=== PATIENT | male | born 1955 | race Caucasian/White ===

== ENCOUNTER 2016-11-20 16:03 | Inpatient (IN) | payer MEDICARE ==
[~2016-11-20] VITALS: Ht 180.3 cm; Wt 119.0 kg
--- NOTE | ~2016-11-20 | CON ---
PATIENT'S NAME: KALPESH SIMON [facility] AGE: 61 Y [address] ROOM: G6[address] [place], [place] [address] LOCATION: GPCU ADMIT DATE: 11/20/2016 Consultation DISCHARGE DATE: 11/22/2016 FAMILY PHYSICIAN: Albina Mancilla DO ATTENDING PHYSICIAN: Angelita Kirk DATE OF CONSULTATION: 11/21/2016 REFERRING PHYSICIAN: Claudy Jules MD INDICATION: Chest pain and shortness of breath. HISTORY OF PRESENT ILLNESS: This is a 60-year-old male, well known to Dr. Donovan with a history of asthma, SKIP, GERD, and other comorbidities who was admitted for chest pain and is status post a left heart catheterization, which was negative. He has a history of CAD with a previous left heart catheterization in October and is status post a drug-eluting stent to the left circ at that time. He reports that his chest pain started fairly sudden on Sunday night around 2:00 a.m. He woke up feeling a heaviness over his left chest up to his left ear. The pain was fairly constant and nothing seemed to make it worse or better. He does recall trying an extra dose of Pepcid, which he takes daily for his severe GERD. He thinks that might have helped some because he did wait for another 24 hours before presenting to the ER. He denies any fevers, chills, nausea, or vomiting. He did have some nausea and vomiting a few times on Sunday before the chest pain started. He also notes increased shortness of breath that occurred simultaneously with the chest pain. He has noted some occasional wheezing as well. He otherwise denies hemoptysis, edema, cough, or sputum production. At the time of this evaluation, he reported that his symptoms spontaneously resolved. He essentially has no shortness of breath or chest pain any more. He was last seen in the clinic and at the end of August in 2015, it was treated for hypersensitivity pneumonitis. He was placed on steroids at that time. The patient reports that his chest pain symptoms that he experienced on Sunday night were also the same symptoms he has experienced as his anginal pain as well as with his recent pneumonitis pain. PAST MEDICAL HISTORY: Includes asthma, SKIP, CAD, hypertension, depression, degenerative joint disease, gout, diabetes, and hypersensitivity pneumonitis. PAST SURGICAL HISTORY: Includes drug-eluting stent to the left circ in October 2016, appendectomy, and colonoscopy eight years ago that he reports as negative. PATIENT'S NAME: KALPESH SIMON [facility] AGE: 61 Y [address] ROOM: [address] [place], [place] [address] LOCATION: GPCU ADMIT DATE: 11/20/2016 Consultation DISCHARGE DATE: 11/22/2016 FAMILY PHYSICIAN: Albina Mancilla DO ATTENDING PHYSICIAN: Angelita Kirk ALLERGIES: SEE NOV. MEDICATIONS: See NOV. SOCIAL HISTORY: Negative for smoking or alcohol use. FAMILY HISTORY: Significant for heart disease and diabetes. No lung history. REVIEW OF SYSTEMS: 12-point review of systems is negative except what is noted in the HPI. PHYSICAL EXAMINATION: VITAL SIGNS: Blood pressure 126/66, pulse 83, respirations 20, temp 97.5, sats were 95% on room air. GENERAL: This is a 60-year-old male, well developed, well nourished, overweight, who is alert and oriented x3 and appears in no acute distress at the time of exam. HEENT. Head: Normocephalic and atraumatic. Eyes, clear. NECK: Supple. No adenopathy. No carotid bruits or JVD. LUNGS: Clear throughout bilaterally. No wheezes or rales. HEART: Regular rate and rhythm without murmur, gallop, or rub. ABDOMEN: Soft, nontender, nondistended. Bowel sounds x4. EXTREMITIES: No cyanosis, clubbing, or edema. DIAGNOSTIC DATA: Sodium 143, potassium 3.7, BUN 19, creatinine 1.2. Troponins 0.122-0.107- 0.08. ProBNP less than 30. WBC 9.4, hemoglobin 12.8, hematocrit 38.6, platelets 173. Chest x-ray report was negative. ASSESSMENT: 1. Chest pain, seems musculoskeletal in nature. Doubt pleurisy or any other pulmonary origin. 2. Dyspnea, intermittent, possible hyperinflation worse with talking, encourage deep breathing exercises as well as albuterol as needed. 3. Gastroesophageal reflux disease, still symptomatic, change in medications will be per GI. 4. Obstructive sleep apnea with nocturnal hypoxia. Sleep study results still pending. PLAN: Overall, significant amount of reassurance was provided to the patient as this PATIENT'S NAME: KALPESH SIMON [facility] AGE: 61 Y [address] ROOM: [place] [address] [facility] ADMIT DATE: 11/20/2016 Consultation DISCHARGE DATE: 11/22/2016 FAMILY PHYSICIAN: Albina Mancilla DO ATTENDING PHYSICIAN: Angelita Kirk was most likely musculoskeletal or possibly even viral in nature. He is still somewhat symptomatic from his GERD and medications will be adjusted per GI. Overall, from a pulmonary standpoint, he is stable and can be discharged to home. We will call the patient for an appointment after his sleep study results become available. Thank you for the consult and opportunity to participate in the patient's care. TYRONE KELLEY APRN FOR MD ALEJO RIVERA/marcelal /[id number] d: 11/30/162250 t: 12/11/16 1311, CONSULTATION REPORT
--- NOTE | ~2016-11-20 | ECHO ---
Transthoracic Echocardiography Report (TTE) Demographics Patient Name KALPESH SIMON Date of Study 11/20/2016 Patient Number [id number] Visit Number [id number] Date of 1955 Room Number G6337 Accession Number [id number] Gender Male Age 60 year(s) Referring Olegario Hannah MD Retail Associate Manager Bilingual David Sanchez T Physician Physician Interpreting [employer] Marketing Manager Physician MD Supervising Ordering Physician Olegario Hannah MD, MD/P Nurse Stress Inside Sales Professional Conclusions Summary Normal LV/RV size and systolic function. The estimated left ventricular ejection fraction is > 70%. MV is grossly normal. No MR. Thick epicardial fat pad. Recommendation The patient will be given the results of this study by the physician who ordered the exam. Cardiology pathology secretary requested me to read this echocardiogram today. Procedure Type of Study TTE procedure:Echo with Contrast. Procedure Date Date: 11/20/2016 Start: 04:46 PM Study Location: ER Indications:Chest pain. Patient Status: STAT HR: 85 bpm BP: 163/90 mmHg Allergies - Latex. - Other:(Insect venom). - Latex. - Other:(insect venom, strawberry, peach, perfume, chocolate). - Latex. - Latex. M-Mode/2D Measurements LV Diastolic Dimension: 3.3 cm LV Systolic Dimension: 1.34 cm LV Septum Diastolic: 1.74 cm LV PW Diastolic: 1.85 cm AO Root Dimension: 2.4 cm LA Dimension: 4.2 cm RV Diastolic Dimension: 3.35 cm LA volume: 52 ml LVOT: 2 cm Findings Left Ventricle Moderate to severe concentric left ventricular hypertrophy. Left Atrium LA is normal in size. Right Atrium RA is grossly normal in size. Aortic Valve AV is not well seen. No AI. Tricuspid Valve TV is not well seen. Pulmonic Valve PV is not well seen. Miscellaneous Poor subcostal images, IVC is not well visualized. Contractility Score LV regional wall motion:(0-Non visualized 1-Normal 2-Hypokinesis 3-Akinesis 4-Dyskinesis 5-Aneurysm) Signature dtt: RAMSEY VIDAL dtd: 11/20/16 1646 Physician Self Edit
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
--- NOTE | ~2016-11-20 | DS ---
PATIENT'S NAME: [facility] AGE: 61 Y [address] ROOM: [place] [address] LOCATION: GPCU ADMIT DATE: 11/20/2016 Discharge Summary DISCHARGE DATE: 11/22/2016 FAMILY PHYSICIAN: Albina Mancilla DO ATTENDING PHYSICIAN: Angelita Kirk DISCHARGE DIAGNOSES: 1. Ofe-ZN-tuzcgzu elevation myocardial infarction secondary to being off anti-platelet agents. 2. Coronary artery disease with a recent percutaneous coronary intervention of the left circumflex and staged percutaneous coronary intervention of the left anterior descending. 3. Normal ejection fraction. 4. Left ventricular hypertrophy. 5. Duodenal and esophageal ulcers. 6. Chronic obstructive pulmonary disease/hypersensitivity pneumonia/asthma. 7. Moderate obesity. 8. Type 2 diabetes. 9. Hypertension. 10. Adverse effects to metoprolol and clonidine. 11. Diffuse itching, the etiology of which is unclear. DISCHARGE MEDICATIONS: 1. Aspirin 325 mg a day. 2. Allopurinol 300 mg a day. 3. Atorvastatin 80 mg a day. 4. Bisoprolol 5 mg daily. 5. Cymbalta 20 mg a day. 6. Fluticasone nasal spray 2 sprays every day. 7. Insulin 100 units/mL 36 units subcutaneous before meals and at bedtime. 8. NovoLog sliding scale. 9. Minoxidil 5 mg a day. 10. Benicar 40 mg a day. 11. Protonix 40 mg a day. 12. Prasugrel 10 mg a day. 13. Prednisone 20 mg a day. 14. Tresiba 150 units every evening. 15. Acetaminophen as needed. 16. Nitroglycerin 0.4 mg sublingual p.r.n. 17. Xanax 0.5 mg t.i.d. p.r.n. 18. CPAP. 19. Aldactazide 25/25 once a day. HOSPITAL COURSE: Course in Hospital: The patient presented with chest pain to the emergency room, where he has had it for about 30 minutes. It appears [facility]GE: 61 Y [address] ROOM: [place] [address] LOCATION: GPCU ADMIT DATE: 11/20/2016 Discharge Summary DISCHARGE DATE: 11/22/2016 FAMILY PHYSICIAN: Albina Mancilla DO ATTENDING PHYSICIAN: Angelita Kirk as if the patient somehow got confused about his medications and has not been taking his Brilinta. He was taken directly to the catheterization lab and his stents were widely patent. Some of his shortness of breath is probably related to his obesity and also his pulmonary problems. So Dr. Donovan was consulted. Some of the chest pains were probably not closely related to his heart. I had asked Dr. Jules to see him, who found the ulcers in his esophagus and stomach. It was also felt that his metoprolol and clonidine are also possibly affecting him overall. So appropriate changes in medications were made and patient was discharged to home with the above medications to be followed up by myself, Dr. Donovan, as well as Dr. Jules. CONDITION ON DISCHARGE: The patient was discharged to home in an improved condition. MD MARIA GUADALUPE OLIVAREZ/tremayne /[id number] d: 12/05/162052 t: 12/12/161899, DISCHARGE SUMMARY
--- NOTE | ~2016-11-20 | CATH ---
Cardiac Diagnostic Report Demographics Patient Name AURORA Olson Gender Male Date of 1955 Age 60 year(s) Patient Number [id number] Date of Study 11/20/2016 Visit Number [id number] Room Number G6[address] [place] [id number] Ht 180.34 cm Wt 116.11 kg Referring Reagan Primary Physician Physician Angelita EMMANUEL Performing Reagan Secondary Physician Physician Angelita EMMANUEL Diagnostic Reagan Assisting Physician Physician Angelita EMMANUEL Interventional Physician Patient Representative Physician Findings and Conclusions Diagnostic Findings and Conclusion calcifications involving proximal coronaries stents seen/patent LVEDP 7 mild disease no identifiable lesions to account for non-stemi Diagnostic Recommendations medical therapy Procedure Description The patient was brought to the diagnostic cardiac catheterization-EP laboratory in the fasting, non-sedated state. Informed consent was obtained in the written and verbal form after the risks and benefits were explained. The patient had no further questions and agreed to proceed. The planned puncture-incision site(s) were shaved and prepped with ChloraPrep and draped in the usual sterile manner. Conscious sedation, supplemental oxygen, and pain control medications were delivered by a registered nurse under physician guidance. Surface ECG rhythm, blood pressure measurement, and pulse oximetry were monitored throughout the procedure. Arterial access. The access site was infiltrated with lidocaine. The vessel was entered with the Seldinger technique. A sheath was advanced into the vessel and used for catheter placement. Selective left coronary angiography. A catheter was advanced into the left coronary vessel ostium under Fluoroscopic guidance. Contrast was injected by hand. Images were obtained in multiple projections. Selective right coronary angiography. A catheter was advanced into the right coronary vessel ostium under fluoroscopic guidance. Contrast was injected by hand. Images were obtained in multiple projections. Left heart catheterization. A catheter was advanced across the aortic valve to the left ventricle under fluoroscopic guidance. Resting hemodynamics were obtained. Arterial artery hemostasis was achieved. The patient was transferred to a regular nursing floor via cart accompanied by a nurse. The patient left the laboratory in stable condition. Diagnostic Cath Status: Emergency Procedure Procedure Type Diagnostic procedure:Angiography:, Coronary Angios w/[facility] Indications: Angina and Shortness of breath. The procedure was explained in detail to the patient. Risks, complications and alternative treatments were reviewed. Written consent was obtained. Medications Reviewed with Patient prior to Procedure. Angiographic Findings Dominance: Right Cardiac Arteries and Lesion Findings LMCA: Abnormal.ostial 30% Lesion on LMCA: Ostial.30% stenosis . LAD: Abnormal.mild diffuse disease, stent patent, jailed diagonal 25-30%There is a previous stent on Mid LAD Mid subsection. Lesion on 1st Diag: Ostial.30% stenosis . LCx: Normal (0% Stenosis).luminal irregularitiesThere is a previous stent on Dist CX Proximal subsection. RCA: Normal (0% Stenosis).mild luminal irrugularitiesThere is a previous stent on Mid RCA Mid subsection. Ramus: Normal (0% Stenosis).mild luminal irregularities Coronary Tree Procedure Data Procedure Date Date: 11/20/2016Start: 05:45 PMEnd: 06:14 PM Entry Locations - Retrograde Percutaneous access was performed through the Right Femoral artery (Primary location). A 7 Fr sheath was inserted. Hemostasis was successfully obtained using Perclose ProGlide (Zeomatrix). Closure Comments: deployed by gregory. Procedure Medications Order and Administration + + + + + !Time !Medication !Dosage !Route ! + + + + + !11/20/2016 05:24 PM !Oxygen !2 l/min !NC ! + + + + + !11/20/2016 05:29 PM !0.9% NaCl !100 ml/hr !I.V. drip ! + + + + + !11/20/2016 05:43 PM !Fentanyl !50 mcg !I.V. ! + + + + + !11/20/2016 05:50 PM !Fentanyl !50 mcg !I.V. ! + + + + + !11/20/2016 06:10 PM !Oxygen ! !NC ! + + + + + Devices Used - A6 Fr. BS JR 4 Diag. Catheterwas used for:Right coronary angiography. - A6 Fr. BS JL 4 Diag. Catheterwas used for:Left coronary angiography. Contrast Material - Isovue 147950 ml Fluoroscopy Time: Diagnostic: 3:54 minutes. Total: 3:54 minutes. Fluoroscopy Dose: Diagnostic: 1442 mGy. Total: 1442 mGy. Estimated Blood Loss: 20 ml. Medical History Allergies - Latex. - Other:(Insect venom). - Latex. - Other:(insect venom, strawberry, peach, perfume, chocolate). - Latex. - Latex. Risk Factors The patient risk factors include:prior PCI on 10/15/2016;obesity, cerebrovascular disease, physical activity, treated hypercholesterolemia, treated hypertension, orally-treated diabetes mellitus, chronic lung disease, last creatinine: 1.4 mg/dl, creatinine clearance: 89.85 ml/min, dyslipidemia and prior VT . Admission Data Admission Date: 11/20/2016 Admission Time: 05:19 PM Admit Source: [facility] facility Insurance Payors: Medicare. Admission Medications + +------+------+ + + + + !Medication !Dosage!Times !Last !Last !Administered !Comments ! ! ! !Per !Delivery !Delivery ! ! ! ! ! !Day !Date !Time ! ! ! + +------+------+ + + + + !Aspirin ! ! ! ! ! ! ! !(any) ! ! ! ! ! ! ! + +------+------+ + + + + !Beta Marta! ! ! ! ! ! ! !(any) ! ! ! ! ! ! ! + +------+------+ + + + + !ARB (any) ! ! ! ! ! ! ! + +------+------+ + + + + !Nitrates (iv! ! ! ! ! ! ! !or buccal) ! ! ! ! ! ! ! + +------+------+ + + + + !Statin (any)! ! ! ! ! ! ! + +------+------+ + + + + Clinical Evaluation Leading to Procedure - The patient's CAD presentation was assessed as: Non-STEMI. - The patient's anginal syndrome during the past two weeks was assessed as: Class IV according to the [place] Cardiovascular Society Classification System (CCS). Anti-anginal medications were prescribed during the past two weeks. The medications are: Beta Blockers, Long Acting Nitrates and Other. VA Ventriculography Findings LVEDP 7 mmhg Hemodynamics Condition: Rest O2 Consumption: Estimated: 279.90Heart Rate: 77 bpm Pressures (mmHg) +-----+ + !Site !Pressure ! +-----+ + !LV !119/5 ,7 ! +-----+ + !LV !124/4 ,7 ! +-----+ + !AO !110/68 (88) ! +-----+ + !LV !121/3 ,7 ! +-----+ + !AO !111/69 (89) ! +-----+ + !AO !93/70 (58) ! +-----+ + Valve Gradients and Areas + +---------+---------+---------+ +---------+ + !Valve !Peak !Mean !Area !Index !Flow !Source ! + +---------+---------+---------+ +---------+ + !Aortic !10 !9 ! ! ! ! ! + +---------+---------+---------+ +---------+ + !Aortic !10 !9 ! ! ! ! ! + +---------+---------+---------+ +---------+ + Shunts Oxygen Values O2 Capacity 174.08 O2 Consumption 279.9 Discharge Data Discharge Date: 11/22/2016 Hospital Status: Inpatient Signatures dtt: Angelita Kirk dtpricila: 11/20/16 1745 Physician Self Edit
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
[~2016-11-20 16:03] MED LIST: ASPIRIN LO-DOSE81 MG PO; ASPIRIN325 MG PO; BENADRYL25 MG PO; BRILINTA90 MG PO; CATAPRES0.1 MG PO; COQ-10100 MG PO; CPAP INH; CRESTOR10 MG PO; CYMBALTA20 M1 PO; DELTASONE20 MG PO; DRISDOL 5050000 UNIT PO; EFFIENT10 MG PO; FLONASE 50 MCG/16 GM NOSE; HUMALOG KW200 UNIT/1 SUB-Q; LANTUS (IN100 UNIT/M SUB-Q; LIPITOR10 MG PO; LIPITOR40 MG PO; LOPRESSOR50 MG PO; MUCOMYST 20200 MG/M1 PO; NEURONTIN300 MG PO; NILSTAT60 ML PO; NITROSTAT0.4 MG SL; NORCO 5-325 MG1 TAB PO; NORVASC5 MG PO; PRILOSEC20 MG PO; RANEXA ER500 MG PO; TRESIBA FL200 UNIT/1 SUB-Q; TRIBENZOR 40-51 EAC1 PO; TYLENOL325 MG PO; VITAMIN D-32000 UNI1 PO; XANAX0.5 MG PO; XARELTO15 MG PO; ZYLOPRIM300 MG PO
[2016-11-20 16:37] LABS: BASOPHIL # 0.1 K/uL (0.0-0.2); BASOPHIL % 0.6 %; EOSINOPHIL # 0.3 K/uL (0.0-0.5); EOSINOPHIL % 2.9 %; HEMATOCRIT 38.6 % (37.0-53.0); HEMOGLOBIN 12.8 g/dL (11.0-16.0); IMMATURE GRANULOCYTE % 0.2 %; LYMPHOCYTE # 2.5 K/uL (0.8-4.0); LYMPHOCYTE % 26.4 %; MCH 28.7 pg (27.0-34.0); MCHC 33.2 gm/dL (32.0-36.5); MCV 86.5 fl (83.0-98.0); MONOCYTE # 1.1 K/uL (0.0-1.0); MONOCYTE % 11.4 %; MPV 9.6 fl (9.4-12.4); NEUTROPHIL # (ANC) 5.5 K/uL (1.4-9.0); NEUTROPHIL % 58.5 %; NRBC % 0 /100WBC (0-0.00); PLATELET COUNT 173 K/uL (150-450); RBC 4.46 M/uL (3.50-5.50); RDW-CV 14.3 % (11.9-14.6); WBC 9.4 K/uL (4.0-11.0)
[2016-11-20 16:46] LABS: PROTIME 10.7 SECONDS (9.6-11.1); PTT 25 SECONDS (25-32)
[2016-11-20 17:01] LABS: ALBUMIN 3.7 gm/dL (3.5-5.0); ALK PHOS 91 IU/L (33-138); ALT 75 IU/L (12-78); ANION GAP 13.7 (10.0-19.0); AST 48 IU/L (10-40); BLOOD UREA NITROGEN 19 mg/dL (6-24); CALCIUM 8.6 mg/dL (8.5-10.5); CHLORIDE 108 mMol/L (96-110); CO2 24 mMol/L (22-32); CPK 252 IU/L (35-332); CREATININE 1.4 mg/dL (0.6-1.3); ESTIMATED GFR (MDRD EQUATION) 51; POTASSIUM 3.7 mMol/L (3.7-5.1); SODIUM 142 mMol/L (135-145); TOTAL PROTEIN 7.1 g/dL (6.0-8.4)
[2016-11-20 17:05] LABS: TOTAL BILIRUBIN 0.4 mg/dL (0.0-1.5)
--- NOTE | 2016-11-20 20:11 | NUR ---
Patient is 60 yo male admitted this evening from [facility] via [facility], was seen in ER and went to clinical lab specialist. patient is alert and oriented. has a long history of heart problems and is diabetic. hx of stroke as well. IV infusing in left hand, saline lock noted in left antecubital space both without erythema or edema noted at sites. patient is on monitor Education is given as documented. patient denies questions. pneumatics are on bilat. allergy bracelet and fall bracelet on with yellow socks. call light is within reach. patient denies needs at this time. report is given to JCAOB Jara.
[2016-11-20] MEDS ORDERED: RANITIDINE HCL75 MG PO (20:37)
--- NOTE | 2016-11-20 23:54 | NUR ---
PATIENT HAD BEEN RECENTLY DISCHARGED 10/01/16 FOR CHF. THIS VISIT HE BEGAN TO EXPERIENCE NAUSEA OVER THE WEEKEND AND SUNDAY MORNING HE WOKE UP FEELING BLOATED AND NOTICED SOME WEIGHT GAIN. DR. BRITO'S NURSE JUST HAPPENED TO CALL TO RESCHEDULE AN APPOINTMENT AND HE TOLD HER OF THE SYMPTOMS. SHE CALLED DR. Arguello AND HE TOLD PATIENT TO GO TO [facility]. AT THE HOSPITAL HE HAD EKG CHANGES AND ELEVATED TROPONIN. HE WAS THEN LIFE FLIGHTED HERE STRAIGHT TO COSMETOLOGIST. CATH WAS NEGATIVE WITH NO INTERVENTIONS. ARRIVED ON FLOOR AT 1800 IN NO APPARENT DISTRESS AND NO COMPLAINTS OF PAIN. NS AT 100 ML/HR. CATH SITE TO RIGHT GROIN C/D/I. DOES HAVE SIGNIFICANT HEART HISTORY, AR WITH STENTS ON 04/14, CHF, CARDIOMYOPATHY, CAD. DIABETIC.
--- NOTE | 2016-11-21 04:32 | NUR ---
Significant Event: PATIENT HAS BEEN A/0 X 3, PLEASANT AND COOPERATIVE WITH CARES. SBP'S 100'S TO 120'S, HR 70'S TO 80'S, AFEBRILE. 02 SATS MID 90'S ON RA, CPAP HS. NS X 1 LITER HAS FINISHED INFUSING. IV'S NOW SL. DRESSING TO RIGHT GROIN REMAINS C/D/I WITH NO COMPLICATIONS. NO COMPLAINTS OF CHEST PAIN OR ANY OTHER PAIN. DID COMPLAIN OF HEADACHE, TYLENOL GIVEN AT 2150 FOR HEADACHE WITH RELIEF NOTED. TRENDING TROPONIN Q6 HOURS, 2300 TROPONIN TRENDED DOWN 0.107 FROM VALUE OF 1.2 AT 1630. CATH WAS NEGATIVE WITH NO INTERVENTIONS. THEREFORE HAS GI AND PULM CONSULT TODAY. ACCU CHECKS Q6 HOURS. Follow up:
[2016-11-21 05:08] LABS: ANION GAP 17.7 (10.0-19.0); BLOOD UREA NITROGEN 19 mg/dL (6-24); CALCIUM 8.5 mg/dL (8.5-10.5); CHLORIDE 111 mMol/L (96-110); CO2 18 mMol/L (22-32); CREATININE 1.2 mg/dL (0.6-1.3); ESTIMATED GFR (MDRD EQUATION) > 60; POTASSIUM 3.7 mMol/L (3.7-5.1); SODIUM 143 mMol/L (135-145)
--- NOTE | 2016-11-21 11:40 | NUR ---
[facility] note: 1130 Patient has A1C of 8.2 % 09/29/16. Patient has been a patient of Madhavi Fiore APRN in the [facility] in the past, reports that he is still looking for someone to assist with his Diabetes Care. Patient reports that he takes large doses of insulin, and is very insulin resistant. Diabetes Survival Skills checklist and Diabetes management booklet provided to patient and he and spouse will complete today, as time allows.
--- NOTE | 2016-11-21 12:47 | NUR ---
Introduced self and role of care management to patient. He lives in [place] with his . He states that he is able to do all his own ADL's. He states that his assists as needed. I did inquire if he had been david green effient as directed and he states "yes". He did state that he uses a pill box that his sets up for him. He plans on returning home on discharge. He denies any needs at this time. Will continue to follow.
--- NOTE | 2016-11-21 14:00 | NUR ---
NURSES NOTE AT 1020: PATIENT C/O LT. NECK/JAW AND LT. SHOULDER PAIN. 02 PLACED AT 2 LPM. STATES HE HAS EPISODES THAT HE FEELS LIKE HE CAN'T CATCH HIS BREATH AND THEN FEELS LIKE HE'S GOING TO PASS OUT. DR. BLANCO NOTIFIED. 1028: NITRO SL AND EKG DONE. STATES FEELS LIKE HEARTBURN, BUT ITS NOT. FEELS HEAVINESS. SKIN W/D. COLOR PALE/PALLOR. 02 SATS 95%. 1030: PAIN HAS LESSENED. FEELS BETTER. 1038: NITRO SL GIVEN AGAIN. STATES HAS SMALL HEADACHE. 1040: FEELING GOOD NOW. PLAN: CONT. TO MONITER PATEINT STATUS.
--- NOTE | 2016-11-21 15:25 | NUR ---
Significant Event: A/O X 3. UP IN ROOM. AFEBRILE. HR SR IN 70-80'S. RT. GROIN WITH DRESSING: C/D/I. PT. HAD EPISODE WHERE HE FELT HE COULDN'T CATCH HIS BREATH, AND DISCOMFORT OF RT. NECK,JAW, AND SHOULDER. 02 PLACED AT 2 LPM, WITH SLIGHT RELIEF. EKG WITH NO CHANGES. NITRO X 2. THEN FELT BETTER. PATIENT LAID SELF DOWN IN BED, AND HAD PROBLEMS WITH FEELING LIKE CHOKING AND SAT BACK UP. WAS INSTRUCTED TO NOT LAY DOWN RIGHT AFTER EATING. SBP 112-145. NOW ON ROOM AIR, SATS 95%. NO RESP. DISTRESS NOTED. GI AND PULM CONSULTS BOTH TODAY. Follow up: CONT. TO MONITER CARDIAC, GI, AND PULM. STATUS.
--- NOTE | 2016-11-22 06:53 | NUR ---
Significant Event: A/0 X 3, COOPERATIVE WITH CARES, UP AD KWAME IN ROOM. AT BEDSIDE ENTIRE EVENING. ALL VSS ON RA, CPAP HS, AFEBRILE. HAS DENIED ALL PAIN DURING SHIFT. NO DIZZINESS OR NAUSEA. CATH SITE TO RIGHT GOING NOW OPE WITH NO COMPLICATIONS. HAS BEEN NPO SINCE 0400 FOR EGD AROUND 10-1200. Follow up:
[2016-11-22] MEDS ORDERED: ASPIRIN325 MG PO (17:08)
[2016-11-22] MEDS ORDERED: LIPITOR80 MG PO (17:09)
[2016-11-22] MEDS ORDERED: ZEBETA5 M1 PO (17:09)
[2016-11-22] MEDS ORDERED: NOVOLOG100 UNIT/M SUB-Q (17:13)
[2016-11-22] MEDS ORDERED: MINOXIDIL2.5 MG PO (17:13)
[2016-11-22] MEDS ORDERED: BENICAR 20 MG20 MG PO (17:14)
[2016-11-22] MEDS ORDERED: PROTONIX40 MG PO (17:15)
[2016-11-22] MEDS ORDERED: EFFIENT10 MG PO (17:15)
[2016-11-22] MEDS ORDERED: ALDACTAZIDE 251 EACH PO (17:16)
--- NOTE | 2016-11-22 17:22 | NUR ---
Significant Event: VSS, afebrile, room air. Alert & oriented. No chest pain. EGD done, found duodenal ulcers. IVs removed. Home meds with patient. Discharge instructions discussed with patient and , verbalized understanding. Belongings with pt. D/c to home.
== END 2016-11-22 17:50 | disposition disaster alternative care site (69) | DRG 280 ==
LOC: GMED 16:03 → GPCU 17:19
PROVIDERS: Emergency Medicine; ADMIT Internal Medicine Interventional Cardiology
PROC: 4A023N7 Measurement of Cardiac Sampling and Pressure, Left Heart, Percutaneous Approach (ICD-10-PCS; principal; 2016-11-20)
PROC: B211YZZ Fluoroscopy of Multiple Coronary Arteries using Other Contrast (ICD-10-PCS; 2016-11-20)
PROC: 0DJ08ZZ Inspection of Upper Intestinal Tract, Via Natural or Artificial Opening Endoscopic (ICD-10-PCS; 2016-11-22)
DX: I21.4 Non-ST elevation (NSTEMI) myocardial infarction (principal); K29.01 Acute gastritis with bleeding; J18.9 Pneumonia, unspecified organism; N17.9 Acute kidney failure, unspecified; E11.9 Type 2 diabetes mellitus without complications; I25.10 Atherosclerotic heart disease of native coronary artery without angina pectoris; M10.9 Gout, unspecified; J45.909 Unspecified asthma, uncomplicated; K21.9 Gastro-esophageal reflux disease without esophagitis; M19.90 Unspecified osteoarthritis, unspecified site; T44.7X5A Adverse effect of beta-adrenoreceptor antagonists, initial encounter; I10 Essential (primary) hypertension; E66.9 Obesity, unspecified; J44.9 Chronic obstructive pulmonary disease, unspecified; F32.9 Major depressive disorder, single episode, unspecified; Z86.73 Personal history of transient ischemic attack (TIA), and cerebral infarction without residual deficits; G47.33 Obstructive sleep apnea (adult) (pediatric); Z68.36 Body mass index [BMI] 36.0-36.9, adult; L29.9 Pruritus, unspecified; T46.5X5A Adverse effect of other antihypertensive drugs, initial encounter; Z79.82 Long term (current) use of aspirin; I25.2 Old myocardial infarction; E78.5 Hyperlipidemia, unspecified
CPT/HCPCS: A9270; C1760; C8929; J1644; J2250; J3010; J7030; J7512

== ENCOUNTER → 2016-11-26 | Outpatient (CLI) | payer MEDICARE ==
[~2016-11-26] MED LIST changes: +ALDACTAZIDE 251 EACH PO; +BENICAR 20 MG20 MG PO; +LIPITOR80 MG PO; +MINOXIDIL2.5 MG PO; +NOVOLOG100 UNIT/M SUB-Q; +PROTONIX40 MG PO; +RANITIDINE HCL75 MG PO; +ZEBETA5 M1 PO
--- NOTE | ~2016-11-26 | PUL ---
PATIENT'S NAME: KALPESH SIMON [facility] AGE: 61 Y [address] ROOM: [place] [address] LOCATION: [facility] ADMIT DATE: 11/26/2016 Pulmonary DISCHARGE DATE: FAMILY PHYSICIAN: PHYSICIAN, NO ATTENDING PHYSICIAN: GARTH BURGOS NAME OF PROCEDURE: Sleep study DATE OF PROCEDURE: 11/26/16 TECH: HANG Jaime TEST #: [facility] [place]# [id number] MEDICAL HISTORY: The patient is a 61-year-old overweight gentleman with a history of hypersomnia and snoring. SLEEP STAGE SUMMARY: The patient was studied for 507 minutes of which he slept 460 minutes. He fell asleep in 8 minutes and slept for 91% of the night. Sleep architecture revealed a decline in slow wave and REM sleep. RESPIRATORY SUMMARY: Oxygen saturations ranged from 86-93%. This study was done to titrate CPAP which was initiated at 6 cm and titrated to 14 cm. EKG SUMMARY: Average heart rate during sleep was 80bpm. No dysrhythmias were noted. LIMB MOVEMENT SUMMARY: No clinically relevant periodic limb movements were noted. SUMMARY: Obstructive sleep apnea responsive to CPAP at 14 cm. PLAN: Suggest CPAP at 14 cm. Patient will receive results from the ordering provider. MD SUNDEEP ABDALLA/ /[id number] dtt: 12/05/16 1455 , Basim Argueta dtd: 11/28/16 1613
== END | disposition disaster alternative care site (69) ==
LOC: GSLP 19:34
DX: G47.33 Obstructive sleep apnea (adult) (pediatric) (principal); G47.10 Hypersomnia, unspecified; R09.02 Hypoxemia